=== PATIENT | female | born 1985 | race Hispanic/Latino ===

== ENCOUNTER 2018-01-23 20:26 | Emergency (ER) | payer OTHER ==
[2018-01-23] MEDS ORDERED: Dexamethasone 10 MG/ML VIAL ONE (20:42)
== END 2018-01-23 20:57 | disposition home or self-care (01) ==
LOC: SCSER 20:26
DX: R09.81 Nasal congestion (principal); R09.82 Postnasal drip
CPT/HCPCS: 96372; J1100